=== PATIENT | male | born 1960 | race Caucasian/White ===

== ENCOUNTER → 2024-07-21 08:31 | Outpatient (REF) | payer OTHER, SELFPAY | LOC: HWRCS 08:31 | PROVIDERS: ATTENDING PHYSICIAN Internal Medicine; FAMILY PHYSICIAN Internal Medicine | DX: R07.9 Chest pain, unspecified (principal); I48.0 Paroxysmal atrial fibrillation; I25.10 Atherosclerotic heart disease of native coronary artery without angina pectoris | CPT/HCPCS: 78452; 93017; A9500; J2785 ==